=== PATIENT | male | born 1945 | race American Indian/Alaskan Native ===

== ENCOUNTER 2018-01-09 19:48 | Emergency (ER) | payer MEDICARE ==
[2018-01-09 20:22] VITALS: BP 135/71
--- NOTE | 2018-01-09 21:07 | Emergency Department Report ---
HPI - General Chief Complaint: Syncope Time Seen by Provider: 01/09/18 20:55 - HPI HPI: 72 year-old male presents to the emergency department by EMS from [facility] after the patient was out shopping with his daughter and he passed out as they were leaving the store. Patient has a history of "short-term dementia" and she says that his level of confusion is baseline for him. He also has a history of [id number] diabetes, hypertension. Currently the patient is awake and cooperative and says that he "feels fine." He denies any headache, vision change, slurred speech, chest pain, shortness of breath, fever. No recent travel or sick contacts at home. ED Past Medical Hx - Past Medical History Previous Medical History?: Yes Hx Hypertension: Yes Hx Diabetes: Yes Hx Dementia: Yes Additional medical history: elevated cholesterol - Social History Smoking Status: Never Smoker Substance Use Type: None - Medications Home Medications: Home Medications Medication Instructions Recorded Confirmed Last Taken Type Aspirin [Aspirin BABY CHEW TAB] 81 mg PO QDAY 01/09/18 01/09/18 01/09/18 History AtorvaSTATin [Lipitor] 40 mg PO QHS 01/09/18 01/09/18 01/09/18 History Donepezil HCl 10 mg PO QDAY 01/09/18 01/09/18 01/09/18 History Glimepiride [Amaryl] 2 mg PO BID 01/09/18 01/09/18 01/09/18 History Memantine [Namenda] 10 mg PO BID 01/09/18 01/09/18 01/09/18 History Rivaroxaban [Xarelto] 20 mg PO QDAY 01/09/18 01/09/18 01/09/18 History ED Review of Systems ROS: Stated complaint: Other details as noted in HPI Comment: All other systems reviewed and negative Constitutional: denies: chills, fever Eyes: denies: eye pain, eye discharge, vision change ENT: denies: ear pain, throat pain Respiratory: denies: cough, shortness of breath, wheezing Cardiovascular: syncope. denies: chest pain Gastrointestinal: denies: abdominal pain, nausea, diarrhea Genitourinary: denies: urgency, dysuria Musculoskeletal: denies: back pain, joint swelling, arthralgia Skin: denies: rash, lesions Neurological: denies: headache, numbness Physical Exam - Physical Exam Vital Signs: Vital Signs 01/09/18 19:48 Temperature 97.1 F L Pulse Rate 80 Respiratory 16 Rate Blood Pressure 135/71 Blood Pressure 135/71 [Right] O2 Sat by Pulse 96 Oximetry Physical Exam: GENERAL: The patient is well-developed well-nourished. HENT: Normocephalic. Atraumatic. Patient has moist mucous membranes. EYES: Extraocular motions are intact. Pupils equal reactive to light bilaterally. No nystagmus. NECK: Supple. Trachea is midline. CHEST/LUNGS: Clear to auscultation. There is no respiratory distress noted. HEART/CARDIOVASCULAR: Regular. There is no tachycardia. There is no murmur. ABDOMEN: Abdomen is soft, nontender. Patient has normal bowel sounds. There is no abdominal distention. SKIN: Skin is warm and dry. NEURO: The patient is awake, alert. The patient is cooperative. The patient has no focal neurologic deficits. The patient has normal speech. Cranial nerves II through XII grossly intact. No pronator drift. MUSCULOSKELETAL: There is no tenderness or deformity. There is no limitation range of motion. There is no evidence of acute injury. ED Course Vital Signs 01/09/18 19:48 Temperature 97.1 F L Pulse Rate 80 Respiratory 16 Rate Blood Pressure 135/71 Blood Pressure 135/71 [Right] O2 Sat by Pulse 96 Oximetry ED Medical Decision Making - Lab Data Result diagrams: 01/09/18 21:58 01/09/18 21:58 - EKG Data -: EKG Interpreted by Nd EKG shows normal: sinus rhythm, axis, intervals, QRS complexes (Q waves to the septal and anterior leads), ST-T waves Rate: normal - EKG Data When compared to previous EKG there are: previous EKG unavailable Interpretation: other (sinus rhythm, normal axis, normal intervals, Q waves to the septal and anterior leads) - Radiology Data Radiology results: report reviewed CT of the head does not show any acute intracranial process including no ischemia, shift, mass, bleeding or skull fracture. - Medical Decision Making Patient presented after having a syncopal episode while leaving a store. Since being in the emergency department he is awake, alert, cooperative, without any complaints and at his baseline mentation. On examination he does not have any focal, motor or sensory deficits and his cranial nerves are intact. EKG does not show any signs of ST elevation OR or significant dysrhythmia. CT of the head does not show any bleed, shift, mass or any other acute process. His labs have been unremarkable and do not show any etiology of his symptoms. Vital signs stable throughout his ED course. He was reevaluated multiple times over multiple hours and has remained stable. Prior to discharge the patient was ambulatory around the emergency department and appeared stable while doing so. The patient and his family are asking for discharge home. They have been encouraged to follow up with the primary care doctor and instructed to return to the emergency department with any further episodes of passing out, development of chest pain or shortness of breath, any altered mental status, or with any acute distress. They understand and agree to the plan. Portions of this chart were completed using dictation software and therefore there may be some dictation errors within this note. - Differential Diagnosis orthostatic hypotension, vasovagal, dysrhythmia, TIA Critical Care Time: No Critical care attestation.: If time is entered above; I have spent that time in minutes in the direct care of this critically ill patient, excluding procedure time. ED Disposition Clinical Impression: Syncope Qualifiers: Syncope type: unspecified Qualified Code(s): R55 - Syncope and collapse Disposition: DC-01 TO HOME OR SELFCARE Is pt being admited?: No Condition: Stable Instructions: Syncope (ED) Additional Instructions: Please follow-up with your primary care physician in the next few days. Return to the emergency department immediately with any further episodes of passing out , development of chest pain or shortness of breath, any altered mental status, or with any acute distress. Referrals: PRIMARY CARE, [Referring] - [facility] Time of Disposition: 23:32
--- NOTE | 2018-01-09 22:20 | Cat Scan Report ---
FINAL REPORT PROCEDURE: CT HEAD/BRAIN WO CON TECHNIQUE: Computerized tomography of the head was performed without contrast material. HISTORY: Syncope COMPARISON: No prior studies are available for comparison. FINDINGS: Brain: There is no evidence of intracranial hemorrhage. No parenchymal hemorrhage is seen. No mass lesions or mass effect is identified. No abnormal extra-axial fluid collections or masses are seen. There is some decreased density seen in the periventricular white matter without mass effect. This is fairly symmetric and does not exhibit any mass effect consistent with gliosis probably on the basis of microvascular disease or white matter changes of aging. Ventricles: The ventricles, sulcal pattern and fissures are prominent consistent with atrophy. Bones: No evidence of acute fracture. Paranasal sinuses: Mild mucosal thickening seen in a few of the ethmoid air cells. Visualized paranasal sinuses otherwise are clear. Mastoid air cells: clear IMPRESSION: There is evidence of atrophy and gliosis. No acute intracranial abnormalities are identified.
[2018-01-09 22:21] LABS: Basophils # (Auto) 0.1 K/mm3 (0.0-0.1); Basophils % (Auto) 0.9 % (0.0-1.8); Eosinophils # (Auto) 0.2 K/mm3 (0.0-0.4); Eosinophils % (Auto) 2.2 % (0.0-4.3); Hematocrit 38.7 % (35.5-45.6); Lymphocytes # (Auto) 1.6 K/mm3 (1.2-5.4); Lymphocytes % (Auto) 17.9 % (13.4-35.0); Mean Corpuscular HGB Conc 34 % (32-34); Mean Corpuscular Hemoglobin 30 pg (28-32); Mean Corpuscular Volume 90 fl (84-94); Monocytes # (Auto) 0.8 K/mm3 (0.0-0.8); Monocytes % (Auto) 8.8 % (0.0-7.3); Platelet Count 189 K/mm3 (140-440)
[2018-01-09 22:37] LABS: Alanine Aminotransferase 14 units/L (7-56); Albumin 4.2 g/dL (3.9-5); BUN/Creatinine Ratio 13; Blood Urea Nitrogen 19 mg/dL (9-20); Hemolysis Index 48
[2018-01-09 23:18] LABS: Bacteria,Urine 1+ /HPF (Negative); Bilirubin,Urine NEG (Negative); Blood,Urine NEG (Negative); Color,Urine Yellow (Yellow); Hyaline Casts,Urine 20 /LPF; Mucus,Urine 2+ /HPF
== END 2018-01-09 23:45 | disposition home or self-care (01) ==
LOC: ED 19:48
DX: R55 Syncope and collapse (principal); I10 Essential (primary) hypertension; E11.9 Type 2 diabetes mellitus without complications; E78.00 Pure hypercholesterolemia, unspecified; Z79.82 Long term (current) use of aspirin
CPT/HCPCS: 36415; 70450; 80053; 81001; 84443; 84484; 85025; 93005; 93010; 99284